=== PATIENT | male | born 1980 | race Caucasian/White ===

== ENCOUNTER 2019-04-05 06:20 | Emergency (ER) | payer SELFPAY ==
[~2019-04-05] VITALS: Ht 175.3 cm; Wt 94.3 kg
[2019-04-05 06:31] VITALS: BP 121/89
--- NOTE | 2019-04-05 06:38 | NUR ---
PT TAKEN TO BED 3
--- NOTE | 2019-04-05 06:40 | NUR ---
38/M PRESENTED TO ED WITH C/O NAUSEA AND VOMITING ONCE X LAST NIGHT. PT STATES "I FEEL LIKE THERES SOMETHING STUCK IN MY THROAT". NO FEVER AT THIS TIME. DENIES DIARRHEA. BOWEL SOUNDS ACTIVE IN 4 QUADRANTS. VSS. MEDHX: DENIES ALLERGIES: DENIES
[2019-04-05] MEDS ORDERED: ONDANSETRON 4 MG ODT PO ONE (07:10)
--- NOTE | 2019-04-05 07:10 | NUR ---
GAVE BEDSIDE REPORT TO AISHWARYA RUVALCABA.
--- NOTE | 2019-04-05 07:22 | NUR ---
PT REFUSED ZOFRAN, PER PT HAS A SORE THROAT, HARD TO SWALLOW. ON EXAMINTATION PT HAD A SWOLLEN TONSILS. NOTIFIED
--- NOTE | 2019-04-05 07:42 | NUR ---
C/O THROAT PAIN 02/07.
[2019-04-05] MEDS ORDERED: NACL 0.9% 1,000 ML IV ONE (08:10)
[2019-04-05] MEDS ORDERED: methylPREDNISolone SS 125 MG in WATER STERILE 2 ML IV ONE (08:10)
[2019-04-05] MEDS ORDERED: KETOROLAC 30 MG/ML VIAL IVP ONE (08:10)
[2019-04-05] MEDS ORDERED: ONDANSETRON 4 MG/2 ML VIAL IVP ONE (08:10)
[2019-04-05] MEDS ORDERED: cefTRIAXone 1,000 MG VIAL ONE (09:28)
[2019-04-05 10:48] VITALS: BP 109/71
--- NOTE | 2019-04-05 10:48 | NUR ---
Patient discharged with v/s stable. Written and verbal after care instructions given and explained. Patient alert, oriented and verbalized understanding of instructions. Ambulatory with steady gait. All questions addressed prior to discharge. ID band removed. Patient advised to follow up with PMD. Rx of Augmentin given. Patient educated on indication of medication including possible reaction and side effects. Opportunity to ask questions provided and answered. Addendum: 04/05/19 at 1056 by LETICIA WRITTEN D/C INSTRUCTIONS GIVEN BY DR SHINE
== END 2019-04-05 10:48 | disposition home or self-care (01) ==
LOC: MED 06:20
DX: J02.9 Acute pharyngitis, unspecified (principal); R11.2 Nausea with vomiting, unspecified
CPT/HCPCS: 96361; 96365; 96375; 99283; J0696; J1885; J2405; J2930; J7030; J7060; Q0162

== ENCOUNTER 2024-01-23 13:56 | Emergency (ER) | payer BC ==
[~2024-01-23] VITALS: Ht 170.2 cm; Wt 85.3 kg
[2024-01-23 14:15] VITALS: BP 125/80; PULSE 71; RESP 18; TEMP 97.7; O2SAT 97
[2024-01-23] MEDS: HYDROcodone/APAP 5/325 MG 1 TAB TAB PO ONE (15:45)
[2024-01-23] MEDS: ONDANSETRON 4 MG ODT PO ONE (15:45)
[2024-01-23] MEDS: KETOROLAC 30 MG/ML VIAL IM ONE (15:46)
[2024-01-23] MEDS ORDERED: ACET-8905 PO (16:07)
[2024-01-23] MEDS ORDERED: METH4TAB1 PO (16:07)
[2024-01-23] MEDS ORDERED: IBUP-2213 PO (16:07)
[2024-01-23] MEDS ORDERED: LID5T TP (16:07)
== END 2024-01-23 16:19 | disposition home or self-care (01) ==
LOC: MED 13:56
DX: S39.012A Strain of muscle, fascia and tendon of lower back, initial encounter (principal); M54.16 Radiculopathy, lumbar region; R03.0 Elevated blood-pressure reading, without diagnosis of hypertension; Z79.1 Long term (current) use of non-steroidal anti-inflammatories (NSAID); Z79.899 Other long term (current) drug therapy; X58.XXXA Exposure to other specified factors, initial encounter; Y93.89 Activity, other specified; Y92.89 Other specified places as the place of occurrence of the external cause; Y99.8 Other external cause status
CPT/HCPCS: 96372; 99283; J1885; Q0162

== ENCOUNTER 2024-02-19 19:21 | Emergency (ER) | payer BC ==
[~2024-02-19] VITALS: Ht 172.7 cm; Wt 86.2 kg
[~2024-02-19 19:21] MED LIST: ACET-8905 PO; IBUP-2213 PO; LID5T TP; METH4TAB1 PO
[2024-02-19 20:32] VITALS: BP 116/67; PULSE 67; RESP 20; TEMP 97; O2SAT 98
[2024-02-19] MEDS: KETOROLAC 30 MG/ML VIAL IM ONE (21:39)
[2024-02-19] MEDS: LIDOCAINE 5% 1 EA PATCH TP ONE (21:40)
[2024-02-19] MEDS: CYCLOBENZAPRINE 10 MG TAB PO ONE (21:40)
[2024-02-19] MEDS: HYDROcodone/APAP 5/325 MG 1 TAB TAB PO ONE (21:40)
[2024-02-19] MEDS ORDERED: METH4TAB1 PO (21:41)
[2024-02-19] MEDS ORDERED: ACET-8905 PO (21:41)
[2024-02-19] MEDS ORDERED: CYCL-711 PO (21:41)
[2024-02-19] MEDS ORDERED: NAPR-337 PO (21:41)
[2024-02-19] MEDS ORDERED: LID5T TP (21:41)
[2024-02-19 21:53] VITALS: BP 116/67; PULSE 67; RESP 20; TEMP 97; O2SAT 98
== END 2024-02-19 21:53 | disposition home or self-care (01) ==
LOC: MED 19:21
DX: M54.42 Lumbago with sciatica, left side (principal); Z79.1 Long term (current) use of non-steroidal anti-inflammatories (NSAID); Z79.899 Other long term (current) drug therapy
CPT/HCPCS: 96372; 99284; J1885